=== PATIENT | male | born 1950 | race Asian ===

== ENCOUNTER 2023-08-31 17:49 | Emergency (ER) | payer MEDICARE, OTHER, SELFPAY ==
[2023-08-31] VITALS (8 sets, daily range): BP systolic 131–170; BP diastolic 69–85; BMI 23.0
[2023-08-31 18:32] LABS: Urine Albumin Negative (Neg - Trace); Urine Bilirubin Negative (Negative); Urine Character Clear (Clear); Urine Color Yellow; Urine Glucose Negative (Negative); Urine Ketone Negative (Negative); Urine Leukocyte Negative (Negative); Urine Nitrite Negative (Negative); Urine Occult Blood Negative (Negative); Urine Urobilinogen Negative (Neg - 1+)
[2023-08-31 18:33] LABS: % Basophils 0.5 % (0-2); % Eosinophils 0.6 % (0-6); % Immature Granulocytes 0.5 % (0-0.5); % Lymphocytes 9.1 % (20.5-51.1); % Monocytes 11.9 % (1.7-9.3); % Neutrophils 77.4 % (42.2-75.2); Absolute Eosinophils 0.1 10^3/uL (0-0.7); Absolute Lymphocytes 0.7 10^3/uL (1.2-3.4); Absolute Neutrophils 6.2 10^3/uL (1.4-6.5); Hematocrit 38.4 % (39.0-52.0); Hemoglobin 13.2 g/dL (13.0-18.0); Mean Corp Hgb Conc. 34.4 g/dL (33.0-37.0); Mean Corpuscular Hgb 31.1 pg (27.0-31.0); Mean Corpuscular Volume 90.6 fL (80.0-94.0); Mean Platelet Volume 8.7 fL (7.4-10.4); Nucleated Red Blood Cells % 0 % (-); Platelet Count 240 10^3/uL (130-400); Red Blood Cell Count 4.24 10^6/uL (4.70-6.10); Red Cell Dist. Width 13.3 % (11.5-14.5)
[2023-08-31 18:38] LABS: COVID-19 Antigen Negative (Negative)
[2023-08-31 18:41] LABS: Lactic Acid 1.1 mmol/L (0.7-2.0)
[2023-08-31 18:46] LABS: ALT (SGPT) 28 U/L (0-50); AST (SGOT) 36 U/L (17-59); Albumin 4.5 g/dl (3.5-5.0); Alkaline Phosphatase 69 U/L (38-126); Blood Urea Nitrogen 13 mg/dl (9-20); Calcium 9.5 mg/dl (8.4-10.2); Carbon Dioxide 26 mmol/L (22-30); Chloride 97 mmol/L (98-107); Estimated Creatinine Clearance 50 ml/min; Glucose 112 mg/dl (70-99); Potassium 4.2 mmol/L (3.5-5.1); Sodium 135 mmol/L (135-145); Total Bilirubin 0.6 mg/dl (0.2-1.3); Total Protein 7.4 g/dl (6.3-8.2); eGFR > 60.00
--- NOTE | 2023-08-31 18:52 | ED.GENMED ---
History of Present Illness
<DO Whit Portillo Last Filed: 09/01/23 14:52>
General
Chief Complaint: Weakness
Source: patient
Time Seen by Provider: 08/31/23 18:40
Travel History
Have you had any contact with someone who has COVID-19?: No
Do you have any symptoms of coronavirus? Fever > 100 degrees, chills, cough, shortness of breath, sore throat, loss of taste or smell, muscle aches, or headache?: Yes
Symptoms:: fever
History of Present Illness
History of Present Illness:
73-year-old male presents to the emergency room by ambulance after being found laying on the ground next to his bed. Patient has been feeling unwell for the past couple days with fever, chills, cough. Patient also has been experiencing a sore
throat. Did take some Tylenol and ibuprofen yesterday but none today. There are also thought patient was acting a bit strange today little bit confused. He is tolerating oral intake.
Past History
<DO Whit Portillo Last Filed: 09/01/23 14:52>
Past History
ED Past Medical History: GERD, Hypercholesterolemia and Other (angioedema)
ED Past Surgical History: None
Social History
Tobacco: Non-smoker
Alcohol: None
Drug: None
Personal:
Living: with family
Phy Exam
<DO Whit Portillo Last Filed: 09/01/23 14:52>
Physical Exam
Physical Exam:
General: Awake, Alert, Oriented X3. No acute distress.
Vitals: Febrile, tachycardic
Head: Atraumatic
Eyes: Pupils equal, EOMI
Throat: Airway intact, no exudates, mildly dry mucosa
Neck: Trachea midline
Lungs: Clear and equal b/l
Heart: Regular rate, no murmurs
Abd: Soft, Nontender, No pulsatile mass
Neuro: Nonfocal
Skin: Warm, dry, no rash
Extremities: pulses equal b/l, no edema
Course
Marylinlt;Brayden Bailey, DO - Last Filed: 09/01/23 14:52>
Orders/Labs/Results
Orders:
Orders
08/31/23
Electrocardiogram (*1) Stat
Comment: DONE EMR
08/31/23 17:56
Electrocardiogram (*1) Urgent
Reason for Study: Other
Other Reason for Exam: Possible Sepsis
Cardiac Monitoring- Treatment ONCE
EKG- Treatment ONCE
IV Insert/Care/Rem.- Treatment PRN
O2 Therapy [RESP] Urgent
Titrate/Wean O2 to maintain O2 sat greater than (%): 93
Special Instructions: TO MAINTAIN CONTINUOUS O2 SATS > OR = 93%
Pulse Ox/cont/shift [RESP] Urgent
Quantity: 1
Special Instructions: CONTINUOUS
08/31/23 18:08
Complete Blood Count/With Diff Urgent
Comprehensive Metabolic Panel Urgent
Lactic Acid Q4H
Comment: ON ICE, CANCEL 2ND ORDER IF FIRST LACTIC ACID LEVEL <2
Blood Culture Q30M
KARIN Source: Blood/Venous
Specimen Description:
Comment: FROM 2 SEPARATE SITES
08/31/23 18:12
Urinalysis Reflex To Culture Urgent
Date Specimen was Collected: 08/31/23
Time Specimen was Collected: 17:56
08/31/23 18:22
COVID-19 Antigen Urgent
Source: Nasal Swab
Blood Culture Q30M
KARIN Source: Blood/Venous
Specimen Description:
Comment: FROM 2 SEPARATE SITES
Influenza A+B Rapid Molecular Urgent
KARIN Source: Nasal Swab
Specimen Description:
08/31/23 18:53
0.9% Sodium Chloride 500 ml [Nss] 500 ml IV BOLUS
Acetaminophen [Tylenol] 1,000 mg PO NOW STA
08/31/23 22:38
CT Head W/o Iv Contrast Urgent
Comment:
Reason For Exam: confused, fall
Abnormal Lab Results
08/31/23
18:08
RBC 4.24 L 10^6/uL
(4.70-6.10)
Hct 38.4 L %
(39.0-52.0)
MCH 31.1 H pg
(27.0-31.0)
Absolute Lymphs (auto) 0.7 L 10^3/uL
(1.2-3.4)
Absolute Monos (auto) 1.0 H 10^3/uL
(0.1-0.6)
Neutrophils % 77.4 H %
(42.2-75.2)
Lymphocytes % 9.1 L %
(20.5-51.1)
Monocytes % 11.9 H %
(1.7-9.3)
Chloride 97 L mmol/L
(98-107)
Glucose 112 H mg/dl
(70-99)
08/31/23 18:08
08/31/23 18:08
Vital Signs
Initial and Last Documented VS:
Initial Vital Signs
Temp Pulse Resp BP Pulse Ox
100.0 F 133 29 170/79 94
08/31/23 17:51 08/31/23 17:51 08/31/23 17:51 08/31/23 17:51 08/31/23 17:51
Last Documented Vital Signs
Temp Pulse Resp BP Pulse Ox
100.0 F 107 25 141/69 100
08/31/23 17:51 08/31/23 23:30 08/31/23 21:00 08/31/23 23:19 08/31/23 23:30
<Arun Patel MD - Last Filed: 09/01/23 00:00>
Orders/Labs/Results
Orders:
Orders
08/31/23
Electrocardiogram (*1) Stat
Comment: DONE EMR
08/31/23 17:56
Electrocardiogram (*1) Urgent
Reason for Study: Other
Other Reason for Exam: Possible Sepsis
Cardiac Monitoring- Treatment ONCE
EKG- Treatment ONCE
IV Insert/Care/Rem.- Treatment PRN
O2 Therapy [RESP] Urgent
Titrate/Wean O2 to maintain O2 sat greater than (%): 93
Special Instructions: TO MAINTAIN CONTINUOUS O2 SATS > OR = 93%
Pulse Ox/cont/shift [RESP] Urgent
Quantity: 1
Special Instructions: CONTINUOUS
08/31/23 18:08
Complete Blood Count/With Diff Urgent
Comprehensive Metabolic Panel Urgent
Lactic Acid Q4H
Comment: ON ICE, CANCEL 2ND ORDER IF FIRST LACTIC ACID LEVEL <2
Blood Culture Q30M
KARIN Source: Blood/Venous
Specimen Description:
Comment: FROM 2 SEPARATE SITES
08/31/23 18:12
Urinalysis Reflex To Culture Urgent
Date Specimen was Collected: 08/31/23
Time Specimen was Collected: 17:56
08/31/23 18:22
COVID-19 Antigen Urgent
Source: Nasal Swab
Blood Culture Q30M
KARIN Source: Blood/Venous
Specimen Description:
Comment: FROM 2 SEPARATE SITES
Influenza A+B Rapid Molecular Urgent
KARIN Source: Nasal Swab
Specimen Description:
08/31/23 18:53
0.9% Sodium Chloride 500 ml [Nss] 500 ml IV BOLUS
Acetaminophen [Tylenol] 1,000 mg PO NOW STA
08/31/23 22:38
CT Head W/o Iv Contrast Urgent
Comment:
Reason For Exam: confused, fall
Abnormal Lab Results
08/31/23
18:08
RBC 4.24 L 10^6/uL
(4.70-6.10)
Hct 38.4 L %
(39.0-52.0)
MCH 31.1 H pg
(27.0-31.0)
Absolute Lymphs (auto) 0.7 L 10^3/uL
(1.2-3.4)
Absolute Monos (auto) 1.0 H 10^3/uL
(0.1-0.6)
Neutrophils % 77.4 H %
(42.2-75.2)
Lymphocytes % 9.1 L %
(20.5-51.1)
Monocytes % 11.9 H %
(1.7-9.3)
Chloride 97 L mmol/L
(98-107)
Glucose 112 H mg/dl
(70-99)
08/31/23 18:08
08/31/23 18:08
Vital Signs
Initial and Last Documented VS:
Initial Vital Signs
Temp Pulse Resp BP Pulse Ox
100.0 F 133 29 170/79 94
08/31/23 17:51 08/31/23 17:51 08/31/23 17:51 08/31/23 17:51 08/31/23 17:51
Last Documented Vital Signs
Temp Pulse Resp BP Pulse Ox
100.0 F 107 25 141/69 100
08/31/23 17:51 08/31/23 23:30 08/31/23 21:00 08/31/23 23:19 08/31/23 23:30
Marylinlt;Brayden Bailey DO - Last Filed: 09/01/23 14:52>
MDM/Problems Addressed
Differential Diagnosis Includes:
Pneumonia, COVID, influenza, urinary tract infection
MDM/Problems Addressed:
Patient ultimately found to be positive for influenza. His labs are reassuring. He felt better after IV fluids and antipyretics. Given reassuring vital signs patient deemed stable for discharge. We did prescribe Tamiflu. Patient was tachycardic
on arrival but his heart rate did return to essentially normal after treatment of fever and dehydration.
<Brayden Bailey DO - Last Filed: 09/01/23 14:52>
*Radiology
Radiology exam reviewed: radiology read reviewed
*Pulse Oximetry
Patient hypoxic: no
*EKG
Interpreted by ED Provider?: Yes
Interpretation: abnormal
Heart Rate: 131
Rate: tachycardiac
Rhythm: sinus tachycardia
[place]: normal axis
Interval: normal interval
QRS Pattern: normal QRS
Ischemia: no ischemia
*[employer] Assistant Interpretation
Rate: tachycardiac
Interpretation: abnormal
Rhythm: sinus tachycardia
*Critical Care Note
Total Time (30-74mins, 75-104mins- exclusive of procedures): Not Applicable
<Arun Patel MD - Last Filed: 09/01/23 00:00>
Update Note
Update Note:
UPDATE (Arun Patel MD)
I saw and examined patient after signout and reviewed all labs and imaging:
Focused HPI: 73-year-old male presents to the emergency room from home with his daughter for evaluation of generalized weakness, fever. Daughter reports that patient has had mild cough, congestion and weakness over the past day or 2. Today was
increasingly weak and had a minor mechanical fall. No apparent head trauma. Daughter says he has been very slightly confused but patient says that he feels fine, denies headache, chest pain, shortness of breath. Denies any focal neurologic
symptoms. He is not on blood thinners.
Physical exam: Awake and alert, oriented x 3. He was tachycardic and hypertensive on initial assessment�vital signs normalized on my assessment. He has no signs of trauma to the head. Pupils are equal round reactive to light bilaterally. Cranial
nerves are intact 2 through 12. Speech is fluid with no dysarthria or aphasia. There is no limb ataxia. He is following complex commands. Motor and sensory function is intact and symmetric in all extremities. He has no signs of trauma to his
extremities.
Medical Decision Makin-year-old male presents after a minor fall in the setting of flulike illness and generalized weakness over the past day or 2. He is not on blood thinners. Lab work reviewed: CBC and CMP are essentially unremarkable.
Urinalysis is negative for infection. His COVID swab was negative but he was positive for influenza which I suspect is the etiology of his symptoms. He received some IV fluids here and his heart rate improved and he is feeling generally well.
Plan is to treat him with Tamiflu. Daughter was concerned about his mild confusion given his fall and so he was sent for a CT head in an abundance of caution although no signs of serious trauma�this was negative for any acute pathology. He has a
nonfocal neurologic exam and does not appear acutely confused here. At this point there is no clear indication for admission and patient says he is feeling better. I did speak to the daughter and offered admission but she feels comfortable taking
him home on Tamiflu that she lives with the patient and will watch him closely and ensure he is drinking plenty of fluids. We did speak about return precautions all questions were answered.
ED Attending Note
<Brayden Bailey DO - Last Filed: 09/01/23 14:52>
-
Portions of this chart may have been created with voice recognition software.� Occasional wrong word or��sound alike� substitutions may have occurred due to the inherent limitations of voice recognition software.
Discharge Plan
Departure
Patient Disposition: Home (Routine Discharge)
Date of Disposition: 08/31/23
Time of Disposition: 23:53
Patient with high blood pressure during this ER visit?: Yes
Condition: Good
Discharge Problem:
Influenza A
Instructions: Flu, Adult ED
Prescriptions:
New
oseltamivir [Tamiflu] 75 mg capsule
75 mg PO BID Qty: 10 0RF
No Action
multivitamin 1 EACH tablet
1 ea PO DAILY
prednisone 50 MG tablet
50 mg PO DAILY Qty: 4 0RF
hydroxyzine HCl 25 MG tablet
25 mg PO TIDPRN PRN (Reason: swelling/allergic reaction) Qty: 10 0RF
metoclopramide HCl 5 MG tablet
5 mg PO ACHS Qty: 20 1RF
indomethacin 50 MG capsule
50 mg PO TID Qty: 15 0RF
prednisone 50 MG tablet
50 mg PO DAILY Qty: 4 0RF
famotidine 20 MG tablet
20 mg PO HS Qty: 7 0RF
prednisone 50 mg tablet
50 mg PO DAILY Qty: 5 0RF
Referrals:
NONE,* [Family Provider] -
Interventions
Interventions:
*Risk Screen - Suicide Last Done: 08/31/23 18:00
*General Assessment Last Done: 08/31/23 18:00
*Neglect/Abuse Screening Last Done: 08/31/23 18:00
ED- Fall Risk Assessment Last Done: 09/01/23 00:05
*ED COVID-19 Vaccine History Last Done: 08/31/23 18:00
*Nursing Disposition Last Done: 09/01/23 00:05
ED- Cardiac Assessment Last Done: 08/31/23 18:00
ED- Neurological Assessment Last Done: 08/31/23 18:00
ED- Pulmonary Assessment Last Done: 08/31/23 18:00
Discharge Date and Time
Discharge Date/Time: 09/01/23 00:06
[2023-08-31] MEDS: TYLENOL 1000 MG PO (19:01)
[2023-08-31] MEDS: NSS 500 IV (19:06)
== END 2023-09-01 00:06 | disposition home or self-care (01) ==
LOC: EMR 17:49
PROVIDERS: EMERGENCY PHYSICIAN Emergency Medicine
DX: J10.1 Influenza due to other identified influenza virus with other respiratory manifestations (principal); K21.9 Gastro-esophageal reflux disease without esophagitis; E78.00 Pure hypercholesterolemia, unspecified
CPT/HCPCS: 99284; 96360; 70450; 80053; 81003; 83605; 85025; 87040; 87502; 87811; 93005

== ENCOUNTER → 2023-09-07 06:38 | Day surgery (SDC) | payer MEDICARE, OTHER, SELFPAY | LOC: GI 06:38 | PROVIDERS: ATTENDING PHYSICIAN Internal Medicine Gastroenterology | DX: K31.89 Other diseases of stomach and duodenum (principal); K25.9 Gastric ulcer, unspecified as acute or chronic, without hemorrhage or perforation; K44.9 Diaphragmatic hernia without obstruction or gangrene; K29.80 Duodenitis without bleeding; K29.50 Unspecified chronic gastritis without bleeding; D49.0 Neoplasm of unspecified behavior of digestive system; Z08 Encounter for follow-up examination after completed treatment for malignant neoplasm; Z85.038 Personal history of other malignant neoplasm of large intestine | CPT/HCPCS: 43239; 88305; 88342 ==

== ENCOUNTER → 2023-10-28 09:58 | Outpatient (REF) | payer MEDICARE, OTHER, SELFPAY | LOC: RAD 09:58 | PROVIDERS: ATTENDING PHYSICIAN Internal Medicine | DX: R41.3 Other amnesia (principal) | CPT/HCPCS: 70450 ==

== ENCOUNTER 2023-10-29 07:49 | Emergency (ER) | payer MEDICARE, OTHER, SELFPAY ==
[2023-10-29 07:55] VITALS: BP 152/87
--- NOTE | 2023-10-29 08:10 | ED.GENMED ---
History of Present Illness
General
Chief Complaint: Musculo-Skeletal Complaint
Source: patient and family (Daughter acting as client executive)
Exam Limitations: none
Time Seen by Provider: 10/29/23 08:02
Travel History
Have you had any contact with someone who has COVID-19?: No
Do you have any symptoms of coronavirus? Fever > 100 degrees, chills, cough, shortness of breath, sore throat, loss of taste or smell, muscle aches, or headache?: No
History of Present Illness
History of Present Illness:
73-year-old male nontraumatic right shoulder pain progressive over 3 days. Has been taking Advil. No trauma. No fever or chills. No history of similar episodes no chest pain shortness of breath or other systemic complaints
Past History
Past History
ED Past Medical History: GERD, Hypercholesterolemia and Other (angioedema)
ED Past Surgical History: None
Social History
Tobacco: Non-smoker
Alcohol: None
Drug: None
Personal:
Living: with family
Review of Systems
Review of Systems
All Other Systems: Not applicable
Constitutional: Denies fever or chills
Respiratory: Reports no symptoms
Cardiac: Reports no symptoms
Phy Exam
Physical Exam
Physical Exam:
GENERAL: Alert and oriented in no apparent distress. Sitting up on the side of the bed
EYE: Orbits normal.
NECK: Supple, nontender
CARDIAC: Regular rate and rhythm without any obvious murmurs.
LUNGS: Clear breath sounds,normal
NEUROLOGICAL: Alert and oriented , grossly non-focal
SKIN: Warm and dry, no rash or lesion, no discoloration, skin intact.
MUSCULOSKELETAL: Mild swelling to the right shoulder diffusely. Patient self splinting the right shoulder. Tenderness anteriorly and laterally over the deltoid. Increasing pain and significant pain with attempted abduction. Minimal pain with
flexion extension although decreased. No unusual warmth or erythema. Other upper extremity joints within normal limits
PSYCH: Normal and appropriate interaction.
Course
Orders/Labs/Results
Orders:
Orders
10/29/23 08:09
Ketorolac [Toradol] 30 mg IM NOW STA
Shoulder, Right 2 Views [CR Shoulder - Right Min 2 View] Urgent
Comment:
Reason For Exam: Nontraumatic right shoulder pain
10/29/23 09:22
Sling Right-Treatment ONCE
Vital Signs
Initial and Last Documented VS:
Initial Vital Signs
Temp Pulse Resp BP Pulse Ox
98.4 F 87 16 152/87 98
10/29/23 07:55 10/29/23 07:55 10/29/23 07:55 10/29/23 07:55 10/29/23 07:55
Last Documented Vital Signs
Temp Pulse Resp BP Pulse Ox
98.4 F 87 16 152/87 98
10/29/23 07:55 10/29/23 07:55 10/29/23 07:55 10/29/23 07:55 10/29/23 07:55
MDM/Problems Addressed
Differential Diagnosis Includes:
Clearly a musculoskeletal issue with the right shoulder. Nothing by history or clinically to support cardiac or other systemic issue. As for the right shoulder highly doubt septic arthritis. There is no unusual warmth or erythema. He has no
infectious symptoms denying fever or chills. Suspect tendinitis/bursitis. Anti-inflammatory symptomatic treatment and x-ray.
*Radiology
Radiology exam reviewed: preliminary read by ED provider (Negative) and radiology read reviewed (Negative)
*Critical Care Note
Total Time (30-74mins, 75-104mins- exclusive of procedures): Not Applicable
Data Reviewed
Review of Other/Old Records Reveals: Labs and Testing
Update Note
Update Note:
Patient medically stable. Has not received his Toradol yet. Sling and orthopedic follow-up. Will send a prescription for a low-dose Vicodin only if needed.
Patient discussed with his daughter. Very nontoxic sitting in the chair. Will follow-up with orthopedics. Instructions on shoulder exercises given
ED Attending Note
-
Portions of this chart may have been created with voice recognition software.� Occasional wrong word or��sound alike� substitutions may have occurred due to the inherent limitations of voice recognition software.
Discharge Plan
Departure
Patient Disposition: Home (Routine Discharge)
Date of Disposition: 10/29/23
Time of Disposition: :23
Patient with high blood pressure during this ER visit?: Yes
Discharge Problem:
Right shoulder pain, Suspect bursitis/tendinitis
Instructions: How to Use a Shoulder Sling, Shoulder Pain ED, BLOOD PRESSURE
Prescriptions:
New
hydrocodone-acetaminophen 5-325 mg tablet
1 tab PO Q6H PRN (Reason: Pain) Qty: 14 0RF
No Action
multivitamin 1 EACH tablet
1 ea PO DAILY
prednisone 50 MG tablet
50 mg PO DAILY Qty: 4 0RF
hydroxyzine HCl 25 MG tablet
25 mg PO TIDPRN PRN (Reason: swelling/allergic reaction) Qty: 10 0RF
metoclopramide HCl 5 MG tablet
5 mg PO ACHS Qty: 20 1RF
indomethacin 50 MG capsule
50 mg PO TID Qty: 15 0RF
prednisone 50 MG tablet
50 mg PO DAILY Qty: 4 0RF
famotidine 20 MG tablet
20 mg PO HS Qty: 7 0RF
prednisone 50 mg tablet
50 mg PO DAILY Qty: 5 0RF
oseltamivir [Tamiflu] 75 mg capsule
75 mg PO BID Qty: 10 0RF
Referrals:
Isidro Mcdermott MD [Active] - Follow up in 2-3 days
Activity Restrictions/Additional Instructions:
Advil or Motrin for pain
You can take the Vicodin if needed but I would start with a half a tablet. It will make you drowsy
Call the orthopedist tomorrow morning for close follow-up
Return sooner with increased pain or any infectious issues
Interventions
Interventions:
*ED COVID-19 Vaccine History Last Done: 10/29/23 07:55
Discharge Date and Time
Print Language: CHINESE
[2023-10-29 09:35] VITALS: BP 148/76
[2023-10-29] MEDS: TORADOL 30 MG IM (09:53)
== END 2023-10-29 09:35 | disposition home or self-care (01) ==
LOC: EMR 07:49
PROVIDERS: EMERGENCY PHYSICIAN Emergency Medicine; FAMILY PHYSICIAN Internal Medicine
DX: M25.511 Pain in right shoulder (principal); R03.0 Elevated blood-pressure reading, without diagnosis of hypertension; E78.00 Pure hypercholesterolemia, unspecified; K21.9 Gastro-esophageal reflux disease without esophagitis
CPT/HCPCS: 99283; 73030

== ENCOUNTER 2023-11-20 08:23 | Outpatient (RCR) | payer MEDICARE, OTHER, SELFPAY | END 2023-11-20 23:59 | disposition home or self-care (01) | LOC: RPT 08:23 | PROVIDERS: ATTENDING PHYSICIAN Orthopaedic Surgery Hand Surgery | DX: M75.41 Impingement syndrome of right shoulder (principal); Z73.6 Limitation of activities due to disability; M62.81 Muscle weakness (generalized) | CPT/HCPCS: 97110; 97162 ==

== ENCOUNTER 2023-12-06 09:03 | Outpatient (RCR) | payer MEDICARE, SELFPAY | END 2023-12-06 23:59 | disposition home or self-care (01) | LOC: RPT 09:03 | PROVIDERS: ATTENDING PHYSICIAN Orthopaedic Surgery Hand Surgery | DX: M75.41 Impingement syndrome of right shoulder (principal); Z73.6 Limitation of activities due to disability | CPT/HCPCS: 97010; 97110; 97140 ==

== ENCOUNTER 2023-12-12 06:12 | Day surgery (SDC) | payer MEDICARE, SELFPAY ==
[2023-12-12 08:04] VITALS: BMI 23.8
[2023-12-12 08:16] LABS: Glucose - Point of Care 94 mg/dl (70-99)
[2023-12-12 08:18] VITALS: BP 155/94
[2023-12-12 10:56] VITALS: BP 134/82
[2023-12-12 11:00] VITALS: BP 129/75
[2023-12-12 11:01] VITALS: BP 134/82
[2023-12-12 11:08] LABS: Glucose - Point of Care 87 mg/dl (70-99)
[2023-12-12 11:15] VITALS: BP 153/88
[2023-12-12 11:30] VITALS: BP 138/91
== END 2023-12-12 12:00 | disposition home or self-care (01) ==
LOC: GI 06:12
PROVIDERS: ATTENDING PHYSICIAN Internal Medicine Gastroenterology
DX: K31.89 Other diseases of stomach and duodenum (principal); D37.2 Neoplasm of uncertain behavior of small intestine; K31.7 Polyp of stomach and duodenum
CPT/HCPCS: 43251; 88305; 82962

== ENCOUNTER 2024-03-10 09:36 | Emergency (ER) | payer MEDICARE, SELFPAY ==
[2024-03-10] VITALS (8 sets, daily range): BP systolic 136–160; BP diastolic 68–98; BMI 23.4
--- NOTE | 2024-03-10 10:12 | ED.GENMED ---
History of Present Illness
General
Chief Complaint: Allergic Reaction
Time Seen by Provider: 03/10/24 10:12
History of Present Illness
History of Present Illness:
HPI: The patient presents with tongue and lip swelling�this started a few days ago and has been worsening. The patient had a similar episode in June 2023 where he was managed in the emergency department with medication. He feels at this time
and the symptoms are worse. He had some vague shortness of breath and also tried his inhaler. He states he is not on an ALEX inhibitor.
EXAM:
GENERAL: Well appearing in no distress
HEENT: Moist oral mucosa, there is moderate to severe angioedema involving the lips only with no oropharyngeal or tongue involvement
CARDIOVASCULAR: No murmurs, normal heart rate, regular rhythm, No chest wall tenderness
PULMONARY: No respiratory distress, breath sounds are clear and equal
ABDOMEN: Soft with no peritoneal signs, no tenderness
NEUROLOGIC: Excellent strength all extremities, no coordination deficits
PSYCHIATRIC: Appropriate mental status, normal insight and judgement
EXTREMITIES: Nontender, no edema, moves all extremities equally
SKIN: No rash, no lesions
TIME OF INITIAL ENCOUNTER: 10:15 AM
NUMBER AND COMPLEXITY OF PROBLEMS ADDRESSED AT THE ENCOUNTER
� Chronic conditions affecting care: GERD, hyperlipidemia
� Acute Exacerbation and/or Progression of Chronic Illness:
� Differential Diagnosis includes: Medication related angioedema, hereditary angioedema, idiopathic angioedema
AMOUNT AND/OR COMPLEXITY OF DATA TO BE REVIEWED AND ANALYZED
� I performed an independent evaluation of and my interpretation is:
EKG:
CT:
X-rays:
Laboratory Studies: CBC and chemistries unremarkable
Other:
� Review of other/old records: I reviewed records when he was here in June 2023 and at that time he was given IV Decadron and IV Pepcid and was placed on oral steroids
� Clinical information was obtained by an independent historian: None needed
� Prescriptions/Medications Considered but not given: Consider EpiPen however the patient is in no distress and no airway compromise
� Further testing considered but not performed:
RISK OF COMPLICATIONS AND/OR MORBIDITY OR MORTALITY OF PATIENT MANAGEMENT
� Social determinants of health affecting care: Lives at home
� Discussion with other providers:
� Escalation of care including admission/observation vs risk of discharge considered: The patient was given IV Decadron, IV Pepcid, and IV Benadryl. Unfortunately, there has been no significant improvement. Therefore I offered
and considered admission to the hospital. The patient strongly prefers against this. There remains to be no airway involvement. He primarily only has lip swelling with no intraoral involvement. Will continue short course of steroids as this has
helped in the past. C1 esterase inhibitor function testing pending
Past History
Past History
ED Past Medical History: GERD, Hypercholesterolemia and Other (angioedema)
ED Past Surgical History: None
Social History
Tobacco: Non-smoker
Alcohol: None
Drug: None
Personal:
Living: with family
Phy Exam
Physical Exam
Physical Exam:
See HPI
Course
Orders/Labs/Results
Orders:
Orders
03/10/24 10:17
Dexamethasone Sod Phosphate [Decadron] 10 mg IV NOW STA
Diphenhydramine [Benadryl] 25 mg IV NOW STA
Famotidine [Pepcid] 20 mg IV NOW STA
03/10/24 10:25
Basic Metabolic Panel Urgent
C1 Esterase Inhibitor, Funct [S] Urgent
Complete Blood Count/With Diff Urgent
Abnormal Lab Results
03/10/24
10:25
Abs Immat Gran (auto) 0.1 H 10^3/uL
(0-0.05)
Absolute Neuts (auto) 7.0 H 10^3/uL
(1.4-6.5)
Immature Gran % 0.7 H %
(0-0.5)
Lymphocytes % 17.7 L %
(20.5-51.1)
Glucose 110 H mg/dl
(70-99)
03/10/24 10:25
03/10/24 10:25
Vital Signs
Initial and Last Documented VS:
Initial Vital Signs
Temp Pulse Resp BP Pulse Ox
98.2 F 94 18 136/98 99
03/10/24 09:38 03/10/24 09:38 03/10/24 09:38 03/10/24 09:38 03/10/24 09:38
Last Documented Vital Signs
Temp Pulse Resp BP Pulse Ox
98.2 F 85 18 160/84 98
03/10/24 09:38 03/10/24 10:40 03/10/24 10:40 03/10/24 10:40 03/10/24 10:40
*Critical Care Note
Total Time (30-74mins, 75-104mins- exclusive of procedures): Not Applicable
ED Attending Note
-
Portions of this chart may have been created with voice recognition software.� Occasional wrong word or��sound alike� substitutions may have occurred due to the inherent limitations of voice recognition software.
Discharge Plan
Departure
Patient Disposition: Home (Routine Discharge)
Date of Disposition: 03/10/24
Time of Disposition: 12:39
Patient with high blood pressure during this ER visit?: Yes
Discharge Problem:
Angioedema
Instructions: Angioedema
Prescriptions:
New
prednisone 50 mg tablet
50 mg PO DAILY Qty: 4 0RF
No Action
famotidine 20 MG tablet
20 mg PO HS Qty: 7 0RF
atorvastatin 10 mg Tablet
10 mg PO DAILY
Pilocarpine Pill
5 mg PO DAILY
omeprazole 40 mg Capsule,Delayed Release(Dr/Ec)
40 mg PO DAILY
Referrals:
Aec,Israel A., MD [Family Provider] -
Activity Restrictions/Additional Instructions:
The cause of your symptoms is unclear. Consider following up with an cost and risk analysis manager. I did do a test called a C1 esterase inhibitor function which is currently pending�this takes a few weeks and I will call you if there is abnormality on this test�a
test for hereditary angioedema. Follow with your primary care doctor. Next dose of steroids tomorrow.
Interventions
Interventions:
*Risk Screen - Suicide Last Done: 03/10/24 10:25
*General Assessment Last Done: 03/10/24 10:25
*Neglect/Abuse Screening Last Done: 03/10/24 10:41
ED- Fall Risk Assessment Last Done: 03/10/24 10:42
*ED COVID-19 Vaccine History Last Done: 03/10/24 10:25
ED-Skin Assessment Last Done: 03/10/24 10:42
Discharge Date and Time
Print Language: FAROESE
[2024-03-10] MEDS: DECADRON 10 MG IV (10:33)
[2024-03-10] MEDS: BENADRYL 25 MG IV (10:34)
[2024-03-10] MEDS: PEPCID 20 MG IV (10:35)
[2024-03-10 10:53] LABS: Blood Urea Nitrogen 13 mg/dl (9-20); Calcium 9.9 mg/dl (8.4-10.2); Carbon Dioxide 24 mmol/L (22-30); Chloride 101 mmol/L (98-107); Estimated Creatinine Clearance 46 ml/min; Glucose 110 mg/dl (70-99); Sodium 138 mmol/L (135-145); eGFR > 60.00
[2024-03-10 11:17] LABS: % Basophils 0.6 % (0-2); % Eosinophils 1.1 % (0-6); % Immature Granulocytes 0.7 % (0-0.5); % Lymphocytes 17.7 % (20.5-51.1); % Neutrophils 74.9 % (42.2-75.2); Absolute Basophils 0.1 10^3/uL (0-0.2); Absolute Eosinophils 0.1 10^3/uL (0-0.7); Absolute Immature Granulocytes 0.1 10^3/uL (0-0.05); Absolute Lymphocytes 1.7 10^3/uL (1.2-3.4); Absolute Monocytes 0.5 10^3/uL (0.1-0.6); Hematocrit 42.4 % (39.0-52.0); Hemoglobin 14.6 g/dL (13.0-18.0); Mean Corp Hgb Conc. 34.4 g/dL (33.0-37.0); Mean Corpuscular Hgb 30.4 pg (27.0-31.0); Mean Corpuscular Volume 88.1 fL (80.0-94.0); Nucleated Red Blood Cells % 0 % (-); Platelet Count 333 10^3/uL (130-400); Red Blood Cell Count 4.81 10^6/uL (4.70-6.10); Red Cell Dist. Width 12.7 % (11.5-14.5); White Blood Cell Count 9.4 10^3/uL (4.8-10.8)
[2024-03-13 17:34] LABS: C1 Esterase Inhibitor, Func 88 % (>=41)
== END 2024-03-10 14:53 | disposition home or self-care (01) ==
LOC: EMR 09:36
PROVIDERS: EMERGENCY PHYSICIAN Emergency Medicine; FAMILY PHYSICIAN Internal Medicine
DX: T78.3XXA Angioneurotic edema, initial encounter (principal); R06.02 Shortness of breath; R03.0 Elevated blood-pressure reading, without diagnosis of hypertension; K21.9 Gastro-esophageal reflux disease without esophagitis; E78.00 Pure hypercholesterolemia, unspecified
CPT/HCPCS: 99284; 96374; 96375 ×2; 80048; 85025; 86161

== ENCOUNTER 2024-11-16 09:54 | Emergency (ER) | payer MEDICARE, SELFPAY ==
[2024-11-16 10:04] VITALS: BP 168/90
[2024-11-16] MEDS: BENADRYL 12.5 MG IV (12:06)
[2024-11-16] MEDS: SOLU-MEDROL PF 60 MG IV (12:07)
[2024-11-16] MEDS: PEPCID 20 MG IV (12:10)
[2024-11-16 12:13] VITALS: BMI 25.4
--- NOTE | 2024-11-16 12:58 | ED.GENMED ---
History of Present Illness
General
Chief Complaint: Facial Problem
Time Seen by Provider: 11/16/24 11:16
History of Present Illness
History of Present Illness:
74-year-old male with history of recurrent angioedema presents to the emergency department for evaluation of right lower lip and right periorbital swelling beginning today. He was seen in February for the same diagnosis, at that time had essentially
no improvement with steroids and antihistamines. He followed up with an security services specialist and did not receive any formal diagnosis or treatment. Of note he had C1 esterase levels sent after Chicken visit and these were unremarkable
Past History
Past History
ED Past Medical History: GERD, Hypercholesterolemia and Other (angioedema)
ED Past Surgical History: None
Social History
Tobacco: Non-smoker
Alcohol: None
Drug: None
Personal:
Living: with family
Review of Systems
Review of Systems
Allergies reviewed?: Yes
All Other Systems: ROS reviewed and negative except as documented in HPI and ROS
Phy Exam
Physical Exam
Physical Exam:
GEN: Well appearing, NAD, WDWN
HEENT: Oral mucosa moist, no scleral icterus, moderate edema to the right lower lip, no intraoral edema, no tongue edema, oropharynx clear
Cardiac: Regular rate
Lung: No respiratory distress, no tachypnea
MSK: No gross deformity or injuries
Skin: Good color, no pallor or jaundice, no rashes
Neuro: AO x3, moves all extremities freely
Psych: Calm, cooperative
Course
Orders/Labs/Results
Orders:
Orders
11/16/24 11:42
Diphenhydramine [Benadryl] 12.5 mg IV NOW STA
Famotidine [Pepcid] 20 mg IV NOW STA
MethylPREDNISolone PF [Solu-Medrol Pf] 60 mg IV NOW STA
Vital Signs
Initial and Last Documented VS:
Initial Vital Signs
Temp Pulse Resp BP Pulse Ox
98 F 94 18 168/90 98
11/16/24 10:04 11/16/24 10:04 11/16/24 10:04 11/16/24 10:04 11/16/24 10:04
Last Documented Vital Signs
Temp Pulse Resp BP Pulse Ox
98 F 79 16 159/77 97
11/16/24 10:04 11/16/24 13:22 11/16/24 13:22 11/16/24 13:22 11/16/24 13:22
MDM/Problems Addressed
MDM/Problems Addressed:
Really no improvement in the ED. He has no airway or respiratory complaints to warrant epinephrine.Prescribe a course of steroids, unclear if this represents hereditary angioedema given the normal C1 esterase levels after last visit. Encouraged
continued follow-up with allergy/PCP
*Critical Care Note
Total Time (30-74mins, 75-104mins- exclusive of procedures): Not Applicable
ED Attending Note
-
Portions of this chart may have been created with voice recognition software.� Occasional wrong word or��sound alike� substitutions may have occurred due to the inherent limitations of voice recognition software.
Discharge Plan
Departure
Patient Disposition: Home (Routine Discharge)
Date of Disposition: 11/16/24
Time of Disposition: 13:00
Patient with high blood pressure during this ER visit?: No
Discharge Problem:
Angioedema
Prescriptions:
New
prednisone 20 mg tablet
40 mg PO DAILY 5 Days Qty: 10 0RF
No Action
famotidine 20 MG tablet
20 mg PO HS Qty: 7 0RF
atorvastatin 10 mg Tablet
10 mg PO DAILY
Pilocarpine Pill
5 mg PO DAILY
omeprazole 40 mg Capsule,Delayed Release(Dr/Ec)
40 mg PO DAILY
prednisone 50 mg tablet
50 mg PO DAILY Qty: 4 0RF
Referrals:
Israel Ace MD [Family Provider] -
Interventions
Interventions:
*Risk Screen - Suicide Last Done: 11/16/24 10:04
*General Assessment Last Done: 11/16/24 10:04
*Neglect/Abuse Screening Last Done: 11/16/24 10:04
*ED- Fall Risk Assessment Last Done: 11/16/24 12:16
*ED COVID-19 Vaccine History Last Done: 11/16/24 12:16
*Nursing Disposition Last Done: 11/16/24 13:22
ED- Neurological Assessment Last Done: 11/16/24 12:16
ED-Skin Assessment Last Done: 11/16/24 12:16
Discharge Date and Time
Discharge Date/Time: 11/16/24 13:25
Print Language: [id number]
[2024-11-16 13:22] VITALS: BP 159/77
== END 2024-11-16 13:25 | disposition home or self-care (01) ==
LOC: EMR 09:54
PROVIDERS: EMERGENCY PHYSICIAN Emergency Medicine; FAMILY PHYSICIAN Internal Medicine
DX: T78.3XXA Angioneurotic edema, initial encounter (principal); Y92.9 Unspecified place or not applicable; K21.9 Gastro-esophageal reflux disease without esophagitis; E78.00 Pure hypercholesterolemia, unspecified
CPT/HCPCS: 99282; 96374; 96375